=== PATIENT | male | born 1990 | race Caucasian/White ===

== ENCOUNTER 2024-04-30 07:16 | Day surgery (SDC) | payer BC ==
[2024-04-30 07:53] LABS: #Basophils 0.06 10x3/uL (0.0-0.2); #Eosinophils 0.16 10x3/uL (0.0-0.5); #Neutrophils 4.16 10x3/uL (1.5-8.4); %Basophils 0.8 % (0.0-2.0); %Eosinophils 2.1 % (0.0-6.0); %Lymphocytes 31.3 % (18.0-47.0); %Monocytes 10.6 % (0.0-10.0); %Neutrophils 54.9 % (40.0-75.0); Hematocrit 47.2 % (38.8-50.0); Hemoglobin 15.5 g/dL (13.5-17.5); Mean Corpuscular HGB CONC 32.8 g/dL (32.0-36.0); Mean Corpuscular Hemoglobin 28.6 pg (27.0-33.0); Mean Corpuscular Volume 87.1 fL (81.2-95.1); Mean Platelet Volume 10.6 fL (7.4-10.4); Platelet Count 224 10x3/uL (150-450); RBC Distribution Width 12.5 % (11.5-14.5); Red Blood Cell (RBC) Count 5.42 10x6/uL (4.32-5.72); White Blood Cell (WBC) Count 7.57 10x3/uL (3.5-10.5)
[2024-04-30] MEDS ORDERED: Midazolam HCl 2 mg/2 ml Vial ONE (08:28)
[2024-04-30] MEDS ORDERED: PROPOFOL 0 ML ONE (08:28)
[2024-04-30] MEDS ORDERED: Fentanyl 250 MCG/5 ML VIAL ONE (08:28)
[2024-04-30] MEDS ORDERED: Bupivacaine/Epinephrine 0.25% 30 ML VIAL ONE (08:28)
[2024-04-30 08:38] VITALS: BMI 25.0
[2024-04-30] MEDS ORDERED: ceFOXitin 1 GM VIAL ONE (08:38)
[2024-04-30] MEDS ORDERED: PROPOFOL 20 ML ONE ×2 (08:42→09:30)
[2024-04-30] MEDS ORDERED: Dexmedetomidine 200 MCG/2 ML VIAL ONE (08:42)
[2024-04-30] MEDS ORDERED: Lidocaine 2% PF 5 ML VIAL ONE (08:42)
[2024-04-30] MEDS ORDERED: Ketorolac Tromethamine 30 MG (1 mL) VIAL ONE (09:14)
[2024-04-30] MEDS ORDERED: Ondansetron PF 4 MG/2 ML Vial ONE (09:14)
[2024-04-30] MEDS ORDERED: SUGAMMADEX SODIUM 200 MG/2 ML VIAL ONE (09:14)
[2024-04-30] MEDS ORDERED: Dexamethasone 20 MG/5 ML VIAL ONE (09:14)
[2024-04-30] MEDS ORDERED: HYDROcodone/Acetaminophen 5/325 mg Tablet ONE (10:39)
== END 2024-04-30 11:09 | disposition home or self-care (01) ==
LOC: CSHSDC 07:16
PROVIDERS: ATTEND Surgery
PROC: 0JB90ZZ Excision of Buttock Subcutaneous Tissue and Fascia, Open Approach (ICD-10-PCS; principal; 2024-04-30)
DX: L05.91 Pilonidal cyst without abscess (principal); Z88.1 Allergy status to other antibiotic agents; Z79.2 Long term (current) use of antibiotics
CPT/HCPCS: 36415; 85025; 87070; 87205; 88304; J0694; J1100; J1885; J2250; J2405; J2704; J3010